=== PATIENT | female | born 1945 | race African-American/Black ===

== ENCOUNTER 2019-05-30 08:36 | Emergency (ER) | payer MEDICARE, MEDICAID ==
[~2019-05-30] VITALS: Ht 180.3 cm; Wt 97.0 kg
[2019-05-30 09:36] VITALS: BP 140/61
== END 2019-05-30 09:39 | disposition home or self-care (01) ==
LOC: ER 08:36
DX: L02.411 Cutaneous abscess of right axilla (principal); E11.9 Type 2 diabetes mellitus without complications; Z88.2 Allergy status to sulfonamides; Z88.6 Allergy status to analgesic agent
CPT/HCPCS: 99283